=== PATIENT | male | born 1980 | race Caucasian/White ===

== ENCOUNTER 2018-05-04 21:17 | Emergency (ER) | payer BC, OTHER | END 2018-05-04 23:59 | disposition home or self-care (01) | LOC: M ED 21:17 | DX: Z04.1 Encounter for examination and observation following transport accident (principal); S62.346A Nondisplaced fracture of base of fifth metacarpal bone, right hand, initial encounter for closed fracture; V28.4XXA Motorcycle driver injured in noncollision transport accident in traffic accident, initial encounter; Y92.410 Unspecified street and highway as the place of occurrence of the external cause | CPT/HCPCS: 73080 ==